=== PATIENT | female | born 1940 | race Caucasian/White ===

== ENCOUNTER → 2017-01-24 | Outpatient (CLI) | payer MEDICARE, BC ==
[~2017-01-24] MED LIST: AMLODIPINE BESY10 MG PO; ARIMIDEX1 MG; BENTYL20 MG PO; CALCIUM1 TAB.CHEW; CARAFATE1 G PO; EVISTA60 M1 PO; FLEXERIL10 MG PO; FLUOXETINE HCL10 MG PO; FOLIC ACID PO; FOLIC ACID1 MG PO; HYDROCODON-ACE1 EACH PO; LANSOPRAZOLE30 M3 PO; LANSOPRAZOLE30 MG PO; LISINOPRIL; LISINOPRIL PO; LORTAB 101 TAB 10/5 DOB; METHOTREXATE2.5 MG; METHOTREXATE2.5 MG PO; NORVASC PO; OXYBUTYNIN CHLO15 MG PO; PRINIVIL40 MG PO; PROZAC PO; TYLOX 5/500 CAP1 CAP PO; VITAMIN D; VITAMIN D2000 UNIT PO
--- NOTE | ~2017-01-24 | MY8 ---
[facility] A Service of [facility] RADIOLOGY TEXT RESULTS PATIENT: AMY STUBBS LOCATION: [facility] : 44 UNIT #: [id number] AGE: [address]: Dk Salomon MD SEX: F ORDER DR: [id number] [facility] [address] [facility] [place], [place] [address] [id number] O MR#: [id number] Acc #: [id number] NAME: AMY STUBBS. : 1940 SEX: F STUDY DATE/TIME: 01/24/2017 12:10 UNIT: [facility] ROOM: STUDY DESCRIPTION: MY Mammogram Dx Dig Rt Attending Physician: Dk Salomon Jr., M.D. Ordering Physician: Dk Salomon Jr., M.D. Primary Care Physician: Zachery Fowler M.D. MEDICAL IMAGING REPORT This report is preliminary unless electronic signature is present EXAM Right digital diagnostic mammogram with CAD, 01/24/2017. CLINICAL HISTORY 76-year-old asymptomatic female with no a history of left-sided breast cancer, status post left mastectomy. Intermittent right breast pain. FINDINGS The background breast parenchyma consists of scattered fibroglandular densities. No suspicious mass, microcalcification, or architectural distortion. The exam is compared to prior mammogram dated 02/14/2016. IMPRESSION Negative mammogram. RECOMMENDATIONS Annual screening mammogram. Exam of the right digital diagnostic mammogram. Please note that clinical history of 76-year-old female with history of left-sided breast cancer status post left discectomy. Intermittent right breast pain. Patients over the age of 40 are entered into a reminder system with target due date for the next mammogram. A result letter will also be sent to the patient. BIRADS: 1 Negative Dictated by... Rhett Freedman M.D. THIS IS AN ELECTRONICALLY VERIFIED REPORT [facility] A Service of [facility] RADIOLOGY TEXT RESULTS PATIENT: AMY STUBBS LOCATION: [facility] : 44 UNIT #: [id number] AGE: [address]: Dk Salomon MD SEX: F ORDER DR: Rhett Freedman M.D. at 01/24/2017 4:13 PM RPC/gisella TD: 01/24/2017 13:44 JOB #: [id number] MEDICAL IMAGING REPORT Page 1 of 1 COPY
== END | disposition home or self-care (01) ==
LOC: CMAM 11:44
DX: N64.4 Mastodynia (principal); Z85.3 Personal history of malignant neoplasm of breast; Z98.890 Other specified postprocedural states
CPT/HCPCS: G0206

== ENCOUNTER → 2017-05-21 | Day surgery (SDC) | payer MEDICARE, BC ==
--- NOTE | ~2017-05-21 | OR ---
Unit #: [id number] #: [id number] Patient: AMY STUBBS [id number] [address] [address] [id number] O MR#: [id number] NAME: AMY STUBBS ROOM: Date of Procedure: 05/21/2017 Admission Date: 05/21/2017 Surgeon: Dk Salomon Jr., M.D. : 1940 Attending Physician: Dk Salomon Jr., M.D. Primary Care Physician: Zachery Fowler M.D. OPERATIVE REPORT INDICATIONS FOR PROCEDURE The patient is a 76-year-old white female, who has been having severe progressive dysphagia with mostly solid foods. It was felt she does have some esophageal stenosis and is brought in this time for upper endoscopy. She also desires screening colonoscopy. Her last colonoscopy was over 10 years ago. PREOPERATIVE DIAGNOSES Desired screening colonoscopy, rule out pathology, and severe dysphagia with esophageal stenosis. POSTOPERATIVE DIAGNOSES Desired screening colonoscopy, rule out pathology, and severe dysphagia with esophageal stenosis. On upper endoscopy, she was noted to have 2+ ulcerative distal esophagitis with [id number] distal esophageal stenosis and an intact Marvel fundoplication wrap as well as on colonoscopy to the cecum, she was noted to have extensive diverticulosis of the left colon with elongated colon and external hemorrhoids. ANESTHESIA MAC anesthesia. PROCEDURES PERFORMED Flexible fiberoptic esophagogastroduodenoscopy with esophageal dilatation from 18 to 20 mm and biopsies of the distal esophagus for pathology, as well as a colonoscopy to the cecum. DESCRIPTION OF PROCEDURE The patient was positioned in Sanderson position with left side down and after being given MAC anesthesia, the Olympus XQ scope was passed in the proximal esophagus. The entire esophagus was examined. Proximal two-thirds appeared normal. In the area of the distal esophagus, there was xwic-eb-[id number] distal esophageal stenosis with 2+ ulcerative distal esophagitis. There was some hypertrophic tissue present. Multiple biopsies were taken from this without significant bleeding. The scope was advanced through the GE junction and the cardia, and down to the fundic and antral region the stomach, retroflexed back up to the area of the cardia. There was an intact Marvel wrap present with no evidence of any hiatal hernia. The stomach distended well without evidence of rigidity. No evidence of any gastric ulcer disease. The scope was advanced down the prepyloric region through the pylorus and duodenal bulb and down to the second portion of the duodenum. The entire duodenal portion examination Unit #: [id number] #: [id number] Patient: AMY STUBBS was within normal limits. The scope was then brought back to the area of the fundus and an 18 to 20 mm balloon dilator was placed and brought up in the distal esophagus and used to dilate the distal esophagus from 18 to 19 to 20 mm. It should be noted that the biopsies of the distal esophagus were done after the dilatation was performed. The scope was then slowly removed. There was no evidence of any tears, perforation, or significant bleeding. The scope was removed. The patient repositioned for colonoscopy. Digital rectal examination was performed, which revealed no palpable mass or tenderness. No blood or stool in the rectal ampulla. There were large external hemorrhoids present, which were not actively bleeding. The Olympus colonoscope was advanced through the anal canal up the rectum and retroflexed down to the area of the anorectal region. There was no evidence of any fissures. No significant internal hemorrhoids. The scope was then straightened and advanced up in the rectosigmoid, in the sigmoid and descending colon, where there was extensive diverticulosis without diverticulitis. The scope was then advanced around the splenic flexure and the transverse colon, around hepatic flexure and ascending colon, and with multiple manipulations including changing of position to her back in supine position, the scope was advanced over to the area of the cecum. Multiple attempts advancing the scope up the distal ileum were unsuccessful. The scope was slowly removed. There were no tumors, no polyps, cancer, or AVMs. No evidence of any colitis or acute diverticulitis. The caliber of the colon appeared normal throughout except for noting a very elongated colon as well as extensive diverticulosis and external hemorrhoids. There were no other abnormalities. The scope was removed. The patient tolerated the procedure well and was discharged in satisfactory condition. Dictated by... Dk Salomon Jr., M.D. JMB/braxton TD: 05/21/2017 14:43 JOB #: [id number] OPERATIVE REPORT Page 1 of 1 X Dk Salomon MD PROCEDURE OPERATIVE NOTE
== END | disposition home or self-care (01) ==
LOC: COPS 11:15
DX: Z12.11 Encounter for screening for malignant neoplasm of colon (principal); K22.10 Ulcer of esophagus without bleeding; K57.30 Diverticulosis of large intestine without perforation or abscess without bleeding; K64.4 Residual hemorrhoidal skin tags; K22.2 Esophageal obstruction; I10 Essential (primary) hypertension; Z85.3 Personal history of malignant neoplasm of breast; Z88.5 Allergy status to narcotic agent; Z88.8 Allergy status to other drugs, medicaments and biological substances; Z79.899 Other long term (current) drug therapy; Z90.710 Acquired absence of both cervix and uterus; Z90.49 Acquired absence of other specified parts of digestive tract; Z90.12 Acquired absence of left breast and nipple; Z98.890 Other specified postprocedural states
CPT/HCPCS: 43239; 43249; G0121; 88305; 88312; 88341; 88342